=== PATIENT | female | born 1980 | race African-American/Black ===

== ENCOUNTER 2017-01-14 11:13 | Emergency (ER) | payer MEDICAID ==
[~2017-01-14] VITALS: Ht 162.6 cm; Wt 55.0 kg
[2017-01-14 13:32] VITALS: BP 112/68
[2017-01-14 13:47] LABS: CLARITY URINE CLOUDY (CLEAR); COLOR URINE YELLOW (YELLOW); GLUCOSE URINE NEGATIVE (NEGATIVE); KETONES URINE NEGATIVE (NEGATIVE); LEUKOCYTE ESTERASE URINE NEGATIVE (NEGATIVE); NITRITE URINE NEGATIVE (NEGATIVE); OCCULT BLOOD URINE NEGATIVE (NEGATIVE); PROTEIN URINE NEGATIVE (NEGATIVE); SPECIFIC GRAVITY URINE 1.027 (1.005-1.030); UROBILINOGEN URINE 0.2 E.U./dL (0.2-1.0)
== END 2017-01-14 16:00 | disposition left against medical advice (07) ==
LOC: ER 11:43
DX: S16.1XXA Strain of muscle, fascia and tendon at neck level, initial encounter (principal); M54.9 Dorsalgia, unspecified; R56.9 Unspecified convulsions; V43.52XA Car driver injured in collision with other type car in traffic accident, initial encounter; Y93.9 Activity, unspecified; Y92.410 Unspecified street and highway as the place of occurrence of the external cause; Z88.8 Allergy status to other drugs, medicaments and biological substances
CPT/HCPCS: 81001; 81025; 99283; Z7610

== ENCOUNTER 2017-03-22 10:16 | Emergency (ER) | payer MEDICAID ==
[~2017-03-22] VITALS: Ht 167.6 cm; Wt 53.0 kg
[2017-03-22 12:11] VITALS: BP 121/78
[2017-03-22] MEDS ORDERED: PREDNISONE 20MG TABLET PO STA (14:28)
[2017-03-22] MEDS ORDERED: DIPHENHYDRAMINE 25MG CAPSULE PO ONE (14:30)
[2017-03-22] MEDS ORDERED: FAMOTIDINE 20MG TABLET PO ONE (14:30)
== END 2017-03-22 16:16 | disposition home or self-care (01) ==
LOC: ER 10:16
DX: L50.9 Urticaria, unspecified (principal); B34.9 Viral infection, unspecified
CPT/HCPCS: 81025; 87804; 93005; 99285; J7512; Q0163

== ENCOUNTER 2017-07-22 22:57 | Emergency (ER) | payer MEDICAID ==
[~2017-07-22] VITALS: Ht 165.1 cm; Wt 50.0 kg
[2017-07-23 04:45] VITALS: BP 120/70
== END 2017-07-23 04:46 | disposition home or self-care (01) ==
LOC: ER 22:57
DX: H65.02 Acute serous otitis media, left ear (principal); G40.909 Epilepsy, unspecified, not intractable, without status epilepticus; Z98.51 Tubal ligation status; Z98.890 Other specified postprocedural states
CPT/HCPCS: 99283

== ENCOUNTER 2020-01-20 00:21 | Emergency (ER) | payer MEDICAID ==
[~2020-01-20] VITALS: Ht 167.6 cm; Wt 50.0 kg
[2020-01-20] MEDS ORDERED: ACETAMINOPHEN WITH CODEINE 300/30MG TABLET PO ONE (01:00)
[2020-01-20 02:35] VITALS: BP 119/69
== END 2020-01-20 02:40 | disposition home or self-care (01) ==
LOC: ER 00:36
DX: S00.83XA Contusion of other part of head, initial encounter (principal); M54.2 Cervicalgia; S80.01XA Contusion of right knee, initial encounter; S30.0XXA Contusion of lower back and pelvis, initial encounter; S20.221A Contusion of right back wall of thorax, initial encounter; G40.909 Epilepsy, unspecified, not intractable, without status epilepticus; V49.49XA Driver injured in collision with other motor vehicles in traffic accident, initial encounter; Y93.89 Activity, other specified; Y92.488 Other paved roadways as the place of occurrence of the external cause
CPT/HCPCS: 71101; 72100; 99284

== ENCOUNTER 2023-12-25 23:50 | Emergency (ER) | payer MEDICAID ==
[~2023-12-25] VITALS: Ht 172.7 cm; Wt 64.0 kg
[2023-12-25 23:53] VITALS: O2SAT 100
[2023-12-26] MEDS: SODIUM CHLORIDE 0.9% 1,000 ML IV ONE (00:28)
[2023-12-26 00:31] LABS: BASOPHILS % 0.7 % (0.0-2.0); EOSINOPHILS % 1.1 % (0.0-5.0); HEMATOCRIT. 42.4 % (36.0-48.0); HEMOGLOBIN. 14.2 g/dL (12.0-16.0); LYMPHOCYTES % 16.8 % (20.0-50.0); MEAN CORPUSCULAR HEMOGLOBIN 32.1 pg (28.0-32.0); MEAN CORPUSCULAR HGB CONC 33.5 g/dL (31.0-37.0); MEAN CORPUSCULAR VOLUME 95.6 fL (81.0-99.0); MONOCYTES % 6.8 % (2.0-8.0); NEUTROPHILS % 74.6 % (40.0-76.0); PLATELET 177 x1000/uL (130-400); RED BLOOD CELL COUNT 4.44 mill/uL (4.2-5.4); RED CELL DISTRIBUTION WIDTH 13.1 % (11.6-14.6); WHITE BLOOD COUNT 9.2 x1000/uL (4.5-11.0)
[2023-12-26 00:34] LABS: CHLORIDE 110 mEq/L (98-107); POTASSIUM 3.4 mEq/L (3.5-5.1); SODIUM 140 mEq/L (136-145)
[2023-12-26 00:35] LABS: CALCIUM 9.6 mg/dL (8.7-10.4); CARBON DIOXIDE 23 mEq/L (21-32)
[2023-12-26 00:40] LABS: CREATININE 0.8 mg/dL (0.6-1.0); ETHANOL BLOOD 36 mg/dL (<10); GLUCOSE 90 mg/dL (70-105); UREA NITROGEN BLOOD 9 mg/dL (9-23)
[2023-12-26 00:53] LABS: HCG SCREEN NEGATIVE
[2023-12-26] MEDS ORDERED: POTA-204 MT (01:32)
[2023-12-26] MEDS: POTASSIUM CHLORIDE 20MEQ/PACKET PO NR (01:49)
[2023-12-26] MEDS: IBUPROFEN 400MG TABLET PO ONE (02:21)
[2023-12-26 02:23] VITALS: BP 108/67; PULSE 71; RESP 10; TEMP 37.05852; O2SAT 98
== END 2023-12-26 02:24 | disposition home or self-care (01) ==
LOC: ER 23:50
DX: G40.909 Epilepsy, unspecified, not intractable, without status epilepticus (principal); E87.6 Hypokalemia; F10.129 Alcohol abuse with intoxication, unspecified; Z98.51 Tubal ligation status; Y90.0 Blood alcohol level of less than 20 mg/100 ml
CPT/HCPCS: 36415; 99283; 80048; 80320; 84703; 83690; 85025; 96360; J7030; Z7610 ×3; G0480

== ENCOUNTER 2024-03-17 16:26 | Emergency (ER) | payer MEDICAID ==
[~2024-03-17] VITALS: Ht 165.1 cm; Wt 49.9 kg
[~2024-03-17 16:26] MED LIST: POTA-204 MT
[2024-03-17 16:31] VITALS: TEMP 98.2; O2SAT 98
[2024-03-17 23:24] VITALS: BP 122/75; PULSE 98; RESP 16; O2SAT 98
== END 2024-03-17 23:25 | disposition home or self-care (01) ==
LOC: ER 16:26
DX: S09.90XA Unspecified injury of head, initial encounter (principal); F10.129 Alcohol abuse with intoxication, unspecified; Z88.8 Allergy status to other drugs, medicaments and biological substances; Y90.9 Presence of alcohol in blood, level not specified; X58.XXXA Exposure to other specified factors, initial encounter; Y93.89 Activity, other specified; Y92.89 Other specified places as the place of occurrence of the external cause; Y99.8 Other external cause status
CPT/HCPCS: 99284

== ENCOUNTER 2024-11-22 12:23 | Emergency (ER) | payer MEDICAID ==
[~2024-11-22] VITALS: Ht 165.1 cm; Wt 60.0 kg
[2024-11-22] MEDS ORDERED: AMOX1TAB16 MT (17:49)
== END 2024-11-22 12:34 | disposition left against medical advice (07) ==
LOC: ER 12:26
DX: M25.551 Pain in right hip (principal); Z53.21 Procedure and treatment not carried out due to patient leaving prior to being seen by health care provider

== ENCOUNTER 2024-11-22 13:56 | Emergency (ER) | payer MEDICAID ==
[~2024-11-22] VITALS: Ht 165.1 cm; Wt 50.0 kg
[2024-11-22 14:06] VITALS: BP 138/72; PULSE 138; RESP 18; TEMP 36.9; O2SAT 98
[2024-11-22] MEDS: ACETAMINOPHEN 325MG TABLET PO ONE (17:30)
[2024-11-22] MEDS: AMOXICILLIN/POTASSIUM CLAVULANATE 875/125MG TAB PO ONE (17:30)
[2024-11-22] MEDS ORDERED: AMOX1TAB16 MT (17:49)
== END 2024-11-22 18:18 | disposition home or self-care (01) ==
LOC: ER 13:59 → CANBEDREQ 16:54 → ER 18:18
DX: M79.662 Pain in left lower leg (principal); Z98.51 Tubal ligation status; Z91.013 Allergy to seafood; Y09 Assault by unspecified means; Y93.89 Activity, other specified; Y92.89 Other specified places as the place of occurrence of the external cause; Y99.8 Other external cause status
CPT/HCPCS: 71045; 93970; 99284